=== PATIENT | female | born 1990 | race Caucasian/White ===

== ENCOUNTER 2018-06-12 20:40 | Emergency (ER) | payer MEDICAID ==
[~2018-06-12] VITALS: Ht 167.6 cm; Wt 88.6 kg
[~2018-06-12 20:40] MED LIST: NO HOME MEDS; SUMA100T PO
[2018-06-12] MEDS ORDERED: normal saline 1000ML IV soln IVB ONE ×2 (20:55→22:10)
[2018-06-12] MEDS ORDERED: LORazepam 2 mg/ml vial IV ONE (20:55)
[2018-06-12 21:16] LABS: BASOPHILS % (AUTO) 0.5 % (0-1); EOSINOPHILS # (AUTO) 0.2 X10'3 (0-0.9); EOSINOPHILS % (AUTO) 1.7 % (0-6); HEMATOCRIT 41.2 % (35.0-45.0); LYMPHOCYTES # (AUTO) 2.6 X10'3 (1.1-4.8); LYMPHOCYTES % (AUTO) 27.1 % (21-51); MEAN CORPUSCULAR HEMOGLOBIN 29.2 PG (27.0-31.0); MEAN CORPUSCULAR VOLUME 86.1 FL (78-98); MEAN PLATELET VOLUME 9.9 FL (7.4-10.4); MONOCYTES # (AUTO) 0.6 X10'3 (0-0.9); NEUTROPHILS # (AUTO) 6.2 X10'3 (1.8-7.7); NEUTROPHILS % (AUTO) 64.7 % (42-75); PLATELET COUNT 263 X10'3 (140-440); RED BLOOD COUNT 4.78 X10'6 (4.20-5.60); RED CELL DISTRIBUTION WIDTH 13.5 % (11.5-14.5); WHITE BLOOD COUNT 9.6 X10'3 (4.5-11.0)
[2018-06-12 21:28] LABS: PARTIAL THROMBOPLASTIN TIME 27 SECONDS (22-32); PROTHROMBIN TIME 10.5 SECONDS (9.0-12.0)
[2018-06-12 21:40] LABS: ALANINE AMINOTRANSFERASE 26 U/L (12-78); ALBUMIN 4.1 G/DL (3.4-5.0); ALBUMIN/GLOBULIN RATIO 1.1 (1.1-1.5); ALKALINE PHOSPHATASE 65 IU/L (46-116); ANION GAP 17 (8-16); BILIRUBIN,TOTAL 0.6 MG/DL (0.1-1.0); BLOOD UREA NITROGEN 9 MG/DL (7-18); BUN/CREATININE RATIO 7.8 (6.6-38.0); CALCIUM 9.4 MG/DL (8.5-10.1); CHLORIDE 103 MMOL/L (99-107); CREATININE 1.15 MG/DL (0.40-0.90); ETHANOL < 0.010 GM/DL (0.0-0.010); GLUCOSE 150 MG/DL (70-104); SODIUM 139 MMOL/L (135-145); TOTAL CARBON DIOXIDE 18.9 MMOL/L (24-32); eGFR 55 ML/MIN
[2018-06-12 21:48] LABS: POTASSIUM 2.8 MMOL/L (3.5-5.1)
[2018-06-12 21:49] LABS: ASPARTATE AMINO TRANSFERASE 14 U/L (10-37)
[2018-06-12] MEDS: potassium 10mEq/100ml NS w/LIDOcaine (10mg/bag) IV SCH ×2 (22:18→23:27)
[2018-06-12 22:56] LABS: CLARITY,URINE CLEAR (Clear); COLOR,URINE YELLOW (Yellow); GLUCOSE, URINE NEGATIVE (Neg); KETONES,URINE TRACE mg/dl (Neg); LEUKOCYTE ESTERASE ,URINE SMALL (Neg); NITRITES, URINE NEGATIVE (Neg); OCCULT BLOOD,URINE NEGATIVE (Neg); PROTEIN,URINE NEGATIVE (Neg); UROBILINOGEN,URINE 0.2 E.U/dL (0.2-1.0)
[2018-06-12 22:59] LABS: GLUCOSE,CSF 58 MG/DL (40-75); TOTAL PROTEIN,CSF 24 MG/DL (15-45)
[2018-06-12 23:03] LABS: URINE AMPHETAMINE SCREEN NEGATIVE (Neg); URINE BARBITUATE SCREEN NEGATIVE (Neg); URINE BENZODIAZEPINES SCREEN NEGATIVE (Neg); URINE CANNABINOID SCREEN NEGATIVE (Neg); URINE COCAINE SCREEN NEGATIVE (Neg); URINE METHADONE SCREEN NEGATIVE (Neg); URINE OPIATE SCREEN NEGATIVE (Neg); URINE PHENCYCLIDINE SCREEN NEGATIVE (Neg)
[2018-06-12 23:14] LABS: UA COLLECTION TYPE CLN CATCH MIDSTREAM
[2018-06-12 23:16] LABS: BACTERIA,URINE 1+ /HPF (Neg); MUCUS STRANDS MODERATE /LPF (Neg); RBC,URINE 0-2 /HPF (0-2); SQUAMOUS EPITHELIAL CELL,UR MANY /LPF (FEW); WBC,URINE 0-4 /HPF (0-4)
[2018-06-12 23:23] LABS: APPEARANCE,CSF CLEAR; CSF RBC 0 /CU MM (0); CSF SUPERNATANT COLOR COLORLESS; CSF WBC CT 1 /CU MM (0-5); TUBE# COUNTED 4
[2018-06-13] MEDS ORDERED: potassium Cl 20 mEq SR tablet PO ONE (00:35)
[2018-06-13 01:03] VITALS: BP 127/98
[2018-06-13] MEDS ORDERED: NA P1TAB PO (22:48)
[2018-06-13] MEDS ORDERED: ONDA4TAB6 PO (22:51)
[2018-06-13] MEDS ORDERED: LORA0.5T PO (22:51)
[2018-06-19 09:20] LABS: CSF WEST NILE VIRUS, IGG Negative (Negative)
[2018-06-19 11:20] LABS: CSF WEST NILE VIRUS, IGM Negative (Negative)
== END 2018-06-13 01:05 | disposition home or self-care (01) ==
LOC: ER 20:41
DX: F41.0 Panic disorder [episodic paroxysmal anxiety] (principal); E87.6 Hypokalemia; E87.2 Acidosis; R25.1 Tremor, unspecified; R51 Headache; R41.0 Disorientation, unspecified; Z72.89 Other problems related to lifestyle; Z88.1 Allergy status to other antibiotic agents; Z79.899 Other long term (current) drug therapy
CPT/HCPCS: 36415; 62270; 70450; 71045; 80053; 80305; 80320; 81001; 82945; 82948; 83605; 84157; 84443; 85025; 85610; 85730; 86788; 86789; 87015; 87040; 87070; 89051; 93005; 96361; 96365; 96366; 96375; 99285; J2060; J3480; J7030; 96368

== ENCOUNTER 2018-06-13 17:49 | Emergency (ER) | payer MEDICAID ==
[~2018-06-13] VITALS: Ht 167.6 cm; Wt 90.2 kg
[2018-06-13 18:22] VITALS: BP 130/89
[2018-06-13] MEDS ORDERED: normal saline 1000ML IV soln IVB ONE (20:15)
[2018-06-13 21:12] LABS: BASOPHILS % (AUTO) 0.4 % (0-1); EOSINOPHILS # (AUTO) 0.1 X10'3 (0-0.9); EOSINOPHILS % (AUTO) 1.2 % (0-6); HEMATOCRIT 40.4 % (35.0-45.0); HEMOGLOBIN 13.8 g/dl (12.0-16.0); LYMPHOCYTES # (AUTO) 1.3 X10'3 (1.1-4.8); LYMPHOCYTES % (AUTO) 13.4 % (21-51); MEAN CORPUSCULAR HEMOGLOBIN 29.4 PG (27.0-31.0); MEAN CORPUSCULAR HGB CONC 34.1 % (33.0-36.5); MEAN CORPUSCULAR VOLUME 86.2 FL (78-98); MEAN PLATELET VOLUME 9.4 FL (7.4-10.4); MONOCYTES # (AUTO) 0.4 X10'3 (0-0.9); MONOCYTES % (AUTO) 3.7 % (2-12); NEUTROPHILS % (AUTO) 81.3 % (42-75); PLATELET COUNT 248 X10'3 (140-440); RED BLOOD COUNT 4.69 X10'6 (4.20-5.60); RED CELL DISTRIBUTION WIDTH 13.3 % (11.5-14.5); WHITE BLOOD COUNT 9.8 X10'3 (4.5-11.0)
[2018-06-13] MEDS ORDERED: LORazepam 2 mg/ml vial IV ONE (21:20)
[2018-06-13 21:21] LABS: HCG SERUM QL NEGATIVE
[2018-06-13 21:27] LABS: ALANINE AMINOTRANSFERASE 21 U/L (12-78); ALBUMIN 4.1 G/DL (3.4-5.0); ALKALINE PHOSPHATASE 65 IU/L (46-116); ANION GAP 14 (8-16); ASPARTATE AMINO TRANSFERASE 16 U/L (10-37); BILIRUBIN,TOTAL 0.4 MG/DL (0.1-1.0); BLOOD UREA NITROGEN 6 MG/DL (7-18); BUN/CREATININE RATIO 7.2 (6.6-38.0); CHLORIDE 103 MMOL/L (99-107); CREATININE 0.83 MG/DL (0.40-0.90); GLUCOSE 95 MG/DL (70-104); PHOSPHORUS 2.1 MG/DL (2.3-4.5); POTASSIUM 3.4 MMOL/L (3.5-5.1); SODIUM 139 MMOL/L (135-145); TOTAL CARBON DIOXIDE 21.8 MMOL/L (24-32); TOTAL PROTEIN 8.1 G/DL (6.4-8.2); eGFR 81 ML/MIN
[2018-06-13] MEDS ORDERED: NA P1TAB PO (22:48)
[2018-06-13] MEDS ORDERED: LORA0.5T PO (22:51)
[2018-06-13] MEDS ORDERED: ONDA4TAB6 PO (22:51)
[2018-06-13] MEDS ORDERED: Neutra Phos packet PO ONE (23:05)
== END 2018-06-13 23:15 | disposition home or self-care (01) ==
LOC: ER 17:50
DX: R11.2 Nausea with vomiting, unspecified (principal); R10.31 Right lower quadrant pain; F41.9 Anxiety disorder, unspecified; R25.1 Tremor, unspecified; Z72.89 Other problems related to lifestyle; Z88.1 Allergy status to other antibiotic agents
CPT/HCPCS: 36415; 74176; 80053; 83605; 83735; 84100; 84703; 85025; 96374; 99285; J2060; J7030

== ENCOUNTER 2018-11-07 00:54 | Emergency (ER) | payer MEDICAID ==
[~2018-11-07] VITALS: Ht 165.1 cm; Wt 90.0 kg
[~2018-11-07 00:54] MED LIST changes: +LOPE2CAP PO; +NA P1TAB PO; +ONDA4TAB6 PO; +ONDA8TAB9 PO; -SUMA100T PO
[2018-11-07 01:34] LABS: BASOPHILS # (AUTO) 0.1 X10'3 (0-0.2); BASOPHILS % (AUTO) 0.7 % (0-1); EOSINOPHILS # (AUTO) 0.1 X10'3 (0-0.9); HEMATOCRIT 43.8 % (35.0-45.0); HEMOGLOBIN 14.2 g/dl (12.0-16.0); LYMPHOCYTES # (AUTO) 1.5 X10'3 (1.1-4.8); LYMPHOCYTES % (AUTO) 13.5 % (21-51); MEAN CORPUSCULAR HEMOGLOBIN 28.3 PG (27.0-31.0); MEAN CORPUSCULAR HGB CONC 32.5 g/dL (33.0-36.5); MEAN PLATELET VOLUME 10.1 FL (7.4-10.4); MONOCYTES # (AUTO) 0.7 X10'3 (0-0.9); MONOCYTES % (AUTO) 6.8 % (2-12); NEUTROPHILS # (AUTO) 8.5 X10'3 (1.8-7.7); PLATELET COUNT 269 X10'3 (140-440); RED BLOOD COUNT 5.04 X10'6 (4.20-5.60); WHITE BLOOD COUNT 10.9 X10'3 (4.5-11.0)
[2018-11-07 01:42] LABS: ALANINE AMINOTRANSFERASE 21 U/L (12-78); ALBUMIN 3.6 G/DL (3.4-5.0); ALBUMIN/GLOBULIN RATIO 0.9 (1.1-1.5); ALKALINE PHOSPHATASE 68 IU/L (46-116); ANION GAP 11 (8-16); ASPARTATE AMINO TRANSFERASE 17 U/L (10-37); BILIRUBIN,TOTAL 0.2 MG/DL (0.1-1.0); BLOOD UREA NITROGEN 12 MG/DL (7-18); CALCIUM 9.3 MG/DL (8.5-10.1); CHLORIDE 102 MMOL/L (99-107); GLUCOSE 97 MG/DL (70-104); POTASSIUM 3.5 MMOL/L (3.5-5.1); SODIUM 139 MMOL/L (135-145); TOTAL CARBON DIOXIDE 25.7 MMOL/L (24-32); TOTAL PROTEIN 7.8 G/DL (6.4-8.2); eGFR 84 ML/MIN
[2018-11-07 02:22] VITALS: BP 141/82
== END 2018-11-07 02:25 | disposition home or self-care (01) ==
LOC: ER 00:55
DX: F41.9 Anxiety disorder, unspecified (principal); R42 Dizziness and giddiness; R41.0 Disorientation, unspecified; R11.2 Nausea with vomiting, unspecified; Z88.1 Allergy status to other antibiotic agents; Z79.899 Other long term (current) drug therapy
CPT/HCPCS: 36415; 80053; 85025; 99284